=== PATIENT | female | born 1975 | race Caucasian/White ===

== ENCOUNTER 2019-06-17 06:57 | Day surgery (SDC) | payer OTHER | END 2019-06-17 09:50 | disposition home or self-care (01) | LOC: AMB-ENDOS 06:57 | DX: D13.1 Benign neoplasm of stomach (principal); K63.5 Polyp of colon; K44.9 Diaphragmatic hernia without obstruction or gangrene; K64.0 First degree hemorrhoids; Z12.11 Encounter for screening for malignant neoplasm of colon ==